=== PATIENT | male | born 1945 | race Caucasian/White ===

== ENCOUNTER 2018-08-28 13:38 | Emergency (ER) | payer OTHER ==
[~2018-08-28] VITALS: Ht 167.6 cm; Wt 95.3 kg
--- NOTE | 2018-08-28 13:45 | NUR ---
Patient to ER bed 07 to gown for evaluation. Side rails up.
[2018-08-28] MEDS ORDERED: NACL 0.9% 1,000 ML IV ONE (13:46)
[2018-08-28 13:48] VITALS: BP_SYST 150
--- NOTE | 2018-08-28 13:50 | NUR ---
Pt brought by partner,A&Ox4, pt presents to ER with R lower abdominal pain 10/10 and nausea, pt denies diarrhea or constipation, skin pink and warm, respirations even and unlabored, pt afebrile , ambulatory, cap refill <3.
--- NOTE | 2018-08-28 13:52 | NUR ---
Dr Singh at bedside examining patient
[2018-08-28] MEDS ORDERED: ONDANSETRON HCL 4 MG/2 ML VIAL IVP ONE (14:00)
--- NOTE | 2018-08-28 14:00 | NUR ---
Pt c/o severe abdonimal pain, Dr Singh notified.
[2018-08-28] MEDS ORDERED: MORPHINE 4 MG/ML INJ. SYRINGE IVP ONE ×2 (14:30→15:00)
--- NOTE | 2018-08-28 14:30 | NUR ---
Dr Singh notified about lactic acid 2.3, no further orders received.
[2018-08-28 14:50] LABS: BASOPHILS % (AUTO) 0.5 % (0.0-2.0); EOSINOPHILS # (AUTO) 0.2 K/uL (0.0-0.4); HEMATOCRIT 44.8 % (36-54); HEMOGLOBIN 15.2 g/dL (14.0-18.0); LYMPHOCYTES # (AUTO) 2.6 K/uL (1.0-5.5); LYMPHOCYTES % (AUTO) 32.7 % (20.5-51.5); MEAN CORPUSCULAR HEMOGLOBIN 32 pg (27-31); MEAN CORPUSCULAR HGB CONC 34 % (32-36); MEAN CORPUSCULAR VOLUME 93 fL (79.0-98.0); MONOCYTES # (AUTO) 0.9 K/uL (0.0-1.0); MONOCYTES % (AUTO) 10.8 % (1.7-9.3); NEUTROPHILS # (AUTO) 4.3 K/uL (1.8-7.7); PLATELET COUNT (AUTO) 240 K/uL (130-430); RED CELL DISTRIBUTION WIDTH 13.9 % (9.0-15.0); WHITE BLOOD COUNT (AUTO) 8.1 K/uL (4.8-10.8)
[2018-08-28 14:58] LABS: ANION GAP 14 (5-15); CALCIUM 10.2 mg/dL (8.4-11.0); CHLORIDE 104 mmol/L (98-107); CREATININE 1.41 mg/dL (0.55-1.30); GLUCOSE 115 mg/dL (70-99); POTASSIUM 4.1 mmol/L (3.5-5.1); SODIUM SERUM 139 mmol/L (136-145); UREA NITROGEN, BLOOD 22 mg/dL (8-21)
[2018-08-28 15:00] LABS: PROTHROMBIN TIME 10.3 SECS (9.5-12.5)
--- NOTE | 2018-08-28 15:00 | NUR ---
Pt states pain is improving after pain medication, VSS.
[2018-08-28 15:02] LABS: ALANINE AMINOTRANSFERASE 28 U/L (12-78); ALBUMIN 3.8 g/dL (3.4-4.8); AMYLASE 59 U/L (0-100); ASPARTATE AMINOTRANSFERASE 16 U/L (10-37); LIPASE 147 U/L (73-393); TOTAL BILIRUBIN 0.6 mg/dL (0.0-1.0)
[2018-08-28 16:09] VITALS: BP_SYST 160
--- NOTE | 2018-08-28 16:09 | NUR ---
Patient given written and verbal discharge instructions and verbalizes understanding. ER MD discussed with patient the results and treatment provided. Patient in stable condition. ID arm band removed. IV catheter removed intact and dressing applied, no active bleeding. Rx of Tylenol with codeine and Zofran given. Patient educated on pain management and to follow up with PMD. Pain Scale 2/10 tolerable for patient . Opportunity for questions provided and answered. Medication side effect fact sheet provided.
--- NOTE | 2018-08-29 09:42 | NUR ---
RECEIVED DISCREPTANCY FROM RADIOLOGY AND PT WAS CALLED BY DR BRENNER AT GIVEN NUMBER. PT WILL RETURN TO ER TODAY
== END 2018-08-28 16:09 | disposition home or self-care (01) ==
LOC: SED 13:38
DX: R10.31 Right lower quadrant pain (principal); R91.1 Solitary pulmonary nodule; I10 Essential (primary) hypertension; Z87.19 Personal history of other diseases of the digestive system
CPT/HCPCS: 36415; 71045; 74176; 80053; 82150; 82550; 83605; 83690; 84484; 85025; 85610; 85730; 87040; 93005; 96374; 96375; 96376; 99284; J2270; J2405; J7030

== ENCOUNTER 2018-08-29 13:01 | Emergency (ER) | payer OTHER ==
[~2018-08-29] VITALS: Ht 167.6 cm; Wt 95.3 kg
[2018-08-29 13:01] VITALS: BP_SYST 163
[2018-08-29 14:08] VITALS: BP_SYST 163
[2018-08-30] MEDS ORDERED: TYC3 PO (19:35)
[2018-08-30] MEDS ORDERED: AMLO5TAB4 PO (19:35)
[2018-08-30] MEDS ORDERED: ONDA4TAB5 PO (19:35)
== END 2018-08-29 14:08 | disposition left against medical advice (07) ==
LOC: SED 13:01
DX: N20.0 Calculus of kidney (principal); I10 Essential (primary) hypertension
CPT/HCPCS: 99281

== ENCOUNTER 2018-08-30 19:08 | Inpatient (IN) | payer OTHER ==
[~2018-08-30] VITALS: Ht 167.6 cm; Wt 94.6 kg
[2018-08-30 19:10] VITALS: BP_SYST 164
[2018-08-30] MEDS ORDERED: AMLO5TAB4 PO (19:35)
[2018-08-30] MEDS ORDERED: TYC3 PO (19:35)
[2018-08-30] MEDS ORDERED: ONDA4TAB5 PO (19:35)
[2018-08-30] MEDS ORDERED: ONDANSETRON HCL 4 MG/2 ML VIAL IVP ONE (19:45)
[2018-08-30] MEDS ORDERED: MORPHINE 4 MG/ML INJ. SYRINGE IVP ONE ×2 (19:45→20:30)
[2018-08-30] MEDS ORDERED: NACL 0.9% 1,000 ML IV ONE (19:45)
[2018-08-30] MEDS ORDERED: TAMSULOSIN HCL 0.4 MG CAP PO ONE (19:45)
[2018-08-30 20:05] LABS: BASOPHILS % (AUTO) 0.5 % (0.0-2.0); EOSINOPHILS # (AUTO) 0.3 K/uL (0.0-0.4); EOSINOPHILS % (AUTO) 3.2 % (0.0-4.0); HEMATOCRIT 41.9 % (36-54); HEMOGLOBIN 14.4 g/dL (14.0-18.0); LYMPHOCYTES # (AUTO) 2.7 K/uL (1.0-5.5); LYMPHOCYTES % (AUTO) 30.8 % (20.5-51.5); MEAN CORPUSCULAR HEMOGLOBIN 32 pg (27-31); MEAN CORPUSCULAR HGB CONC 34 % (32-36); MEAN CORPUSCULAR VOLUME 93 fL (79.0-98.0); MONOCYTES % (AUTO) 10.8 % (1.7-9.3); NEUTROPHILS # (AUTO) 4.8 K/uL (1.8-7.7); NEUTROPHILS % (AUTO) 54.7 % (40.0-70.0); PLATELET COUNT (AUTO) 226 K/uL (130-430); WHITE BLOOD COUNT (AUTO) 8.8 K/uL (4.8-10.8)
[2018-08-30 20:13] LABS: ANION GAP 11 (5-15); CALCIUM 9.8 mg/dL (8.4-11.0); CHLORIDE 101 mmol/L (98-107); CREATININE 1.54 mg/dL (0.55-1.30); GLUCOSE 121 mg/dL (70-99); SODIUM SERUM 134 mmol/L (136-145); UREA NITROGEN, BLOOD 20 mg/dL (8-21)
[2018-08-30 20:18] LABS: ALANINE AMINOTRANSFERASE 24 U/L (12-78); ALBUMIN 3.6 g/dL (3.4-4.8); ASPARTATE AMINOTRANSFERASE 13 U/L (10-37); TOTAL BILIRUBIN 0.6 mg/dL (0.0-1.0)
[2018-08-30 20:30] LABS: BILIRUBIN,URINE NEGATIVE (NEGATIVE); BLOOD, URINE 3+ (NEGATIVE); CLARITY/URINE CLEAR (CLEAR); COLOR,URINE YELLOW (YELLOW); GLUCOSE,URINE NEGATIVE (NEGATIVE); KETONES,URINE 1+ (NEGATIVE); LEUKOCYTE ESTERASE ,URINE NEGATIVE (NEGATIVE); NITRITE, URINE NEGATIVE (NEGATIVE); PROTEIN URINE TRACE (NEGATIVE); UROBILINOGEN,URINE 0.2 (0.2-1.0)
[2018-08-30 20:37] LABS: BACTERIA,URINE FEW /HPF (None Seen); MUCUS,URINE 1+ /LPF (None Seen)
[2018-08-30] MEDS ORDERED: cefTRIAXone 1 GM in D5W 50 ML IV ONE (21:00)
[2018-08-30] MEDS ORDERED: ACETAMINOPHEN 325 MG TABLET PO PRN (21:00)
[2018-08-30] MEDS ORDERED: HYDROmorphone 1 MG INJ. 1 MG/ML AMPUL IVP PRN (21:00)
[2018-08-30] MEDS ORDERED: METOCLOPRAMIDE HCL 10 MG/2 ML VIAL IVP PRN (21:00)
[2018-08-30] MEDS ORDERED: ONDANSETRON HCL 4 MG/2 ML VIAL IVP PRN (21:00)
[2018-08-30] MEDS ORDERED: fentaNYL CITRATE/PF 100 MCG/2 ML AMP IVP ONE (21:15)
[2018-08-30 22:19] VITALS: BP_SYST 146
[2018-08-30 22:20] VITALS: BP_SYST 146
[2018-08-30] MEDS: HYDROmorphone 2 MG/ML VIAL IVP PRN (22:56)
[2018-08-30] MEDS ORDERED: cefTRIAXone 1 GM IVPB PREMIX 50 ML IV ONE (23:25)
[2018-08-30] MEDS: D5NS 1,000 ML IV SCH (23:47)
[2018-08-31 01:14] VITALS: BP_SYST 139
[2018-08-31] MEDS: D5NS 1,000 ML IV SCH ×2 (03:41→13:40)
[2018-08-31] MEDS: HYDROmorphone 2 MG/ML VIAL IVP PRN ×2 (04:34→15:42)
[2018-08-31 06:36] LABS: ANION GAP 7 (5-15); CALCIUM 8.6 mg/dL (8.4-11.0); CHLORIDE 104 mmol/L (98-107); CREATININE 1.67 mg/dL (0.55-1.30); GLUCOSE 131 mg/dL (70-99); POTASSIUM 4.3 mmol/L (3.5-5.1); SODIUM SERUM 138 mmol/L (136-145); UREA NITROGEN, BLOOD 18 mg/dL (8-21)
[2018-08-31 06:43] LABS: BASOPHILS % (AUTO) 0.3 % (0.0-2.0); EOSINOPHILS # (AUTO) 0.2 K/uL (0.0-0.4); HEMATOCRIT 39.4 % (36-54); HEMOGLOBIN 13.1 g/dL (14.0-18.0); LYMPHOCYTES # (AUTO) 1.9 K/uL (1.0-5.5); LYMPHOCYTES % (AUTO) 20.9 % (20.5-51.5); MEAN CORPUSCULAR HEMOGLOBIN 32 pg (27-31); MEAN CORPUSCULAR HGB CONC 33 % (32-36); MEAN CORPUSCULAR VOLUME 94 fL (79.0-98.0); MONOCYTES # (AUTO) 1.3 K/uL (0.0-1.0); MONOCYTES % (AUTO) 14.7 % (1.7-9.3); NEUTROPHILS # (AUTO) 5.6 K/uL (1.8-7.7); NEUTROPHILS % (AUTO) 62.1 % (40.0-70.0); PLATELET COUNT (AUTO) 209 K/uL (130-430); RED BLOOD CELL COUNT(AUTO) 4.17 MIL/uL (4.2-6.2); RED CELL DISTRIBUTION WIDTH 13.7 % (9.0-15.0)
[2018-08-31 06:44] LABS: ALANINE AMINOTRANSFERASE 20 U/L (12-78); ALBUMIN 3.2 g/dL (3.4-4.8); ASPARTATE AMINOTRANSFERASE 13 U/L (10-37); TOTAL BILIRUBIN 0.5 mg/dL (0.0-1.0)
[2018-08-31 08:00] VITALS: BP_SYST 140
[2018-08-31] MEDS: TAMSULOSIN HCL 0.4 MG CAP PO SCH (09:00)
[2018-08-31 12:27] VITALS: BP_SYST 132
[2018-08-31 16:39] VITALS: BP_SYST 145
[2018-08-31] MEDS ORDERED: IOHEXOL 50 ML IV ONE (17:49)
[2018-08-31] MEDS ORDERED: KETOROLAC TROMETHAMINE 30 MG VIAL IVP PRN (18:30)
[2018-08-31] MEDS ORDERED: fentaNYL CITRATE/PF 100 MCG/2 ML AMP IVP PRN ×2 (18:30)
[2018-08-31] MEDS ORDERED: METOCLOPRAMIDE HCL 10 MG/2 ML VIAL IVP PRN (18:30)
[2018-08-31] MEDS ORDERED: NS IRRIG SOLN 1000 ML IR ONE (19:10)
[2018-08-31] MEDS ORDERED: LR 1,000 ML IV.SOLN IV ONE (19:10)
[2018-08-31] MEDS ORDERED: WATER FOR IRRIGATION,STERILE 1,000 ML IRRIG.SOLN IR ONE (19:10)
[2018-08-31] MEDS ORDERED: LEVOFLOXACIN 750 mg/D5W 150 mL IVPB IV ONE (19:10)
[2018-08-31] MEDS ORDERED: MIDAZOLAM HCL 5 MG/ML VIAL (VERSED) IV ONE (19:10)
[2018-08-31] MEDS ORDERED: NS IRRIG SOLN 5000 ML IR ONE (19:10)
[2018-08-31] MEDS ORDERED: ONDANSETRON HCL 4 MG/2 ML VIAL ONE (19:10)
[2018-08-31] MEDS ORDERED: METOCLOPRAMIDE HCL 10 MG/2 ML VIAL ONE (19:27)
[2018-09-01 00:17] VITALS: BP_SYST 124
[2018-09-01] MEDS: D5NS 1,000 ML IV SCH ×2 (00:23→05:56)
[2018-09-01 05:31] VITALS: BP_SYST 124
[2018-09-01 08:06] VITALS: BP_SYST 134
[2018-09-01] MEDS: TAMSULOSIN HCL 0.4 MG CAP PO SCH (08:15)
[2018-09-01 10:51] VITALS: BP_SYST 134
[2018-09-01] MEDS ORDERED: LEVO750T45 PO (11:03)
[2018-09-01] MEDS ORDERED: TAMS-11 PO (11:03)
[2018-09-01 11:30] VITALS: BP_SYST 150
== END 2018-09-01 11:41 | disposition home or self-care (01) | DRG 661 ==
LOC: SED 19:08 → SMU 20:47
PROVIDERS: ADMIT Internal Medicine Hospice and Palliative Medicine; ATTEND Internal Medicine Hospice and Palliative Medicine
PROC: BT1D1ZZ Fluoroscopy of Right Kidney, Ureter and Bladder using Low Osmolar Contrast (ICD-10-PCS; 2018-08-31)
PROC: 0T768DZ Dilation of Right Ureter with Intraluminal Device, Via Natural or Artificial Opening Endoscopic (ICD-10-PCS; principal; 2018-08-31 17:30)
DX: N13.2 Hydronephrosis with renal and ureteral calculous obstruction (principal); I10 Essential (primary) hypertension; N17.0 Acute kidney failure with tubular necrosis; E78.00 Pure hypercholesterolemia, unspecified; N35.919 Unspecified urethral stricture, male, unspecified site; Z79.899 Other long term (current) drug therapy; Z87.442 Personal history of urinary calculi
CPT/HCPCS: 36415; 76000; 80053; 81000-TC; 85025; 87040-TC; 87081; 93005; 96361; 96374; 96375; 96376; 99285; C1758; C2625; J0696; J1170; J1956; J2250; J2270; J2405; J2765; J3010; J7042; J7060; J7120; Q9967